=== PATIENT | male | born 1990 | race Caucasian/White ===

== ENCOUNTER 2016-10-06 12:56 | Emergency (ER) | payer BC, MEDICAID ==
[~2016-10-06] VITALS: Ht 182.9 cm; Wt 113.4 kg
[2016-10-06 13:54] VITALS: BP 142/85
== END 2016-10-06 14:58 | disposition home or self-care (01) ==
LOC: ER 12:56
DX: G43.909 Migraine, unspecified, not intractable, without status migrainosus (principal); Z76.0 Encounter for issue of repeat prescription

== ENCOUNTER 2016-10-31 16:19 | Emergency (ER) | payer BC, MEDICAID ==
[~2016-10-31] VITALS: Ht 182.9 cm; Wt 127.0 kg
[2016-10-31 16:44] VITALS: BP 136/88
== END 2016-10-31 21:44 | disposition left against medical advice (07) ==
LOC: ER 16:28
DX: G43.909 Migraine, unspecified, not intractable, without status migrainosus (principal); Z53.21 Procedure and treatment not carried out due to patient leaving prior to being seen by health care provider

== ENCOUNTER 2016-11-01 13:13 | Emergency (ER) | payer BC, MEDICAID ==
[~2016-11-01] VITALS: Ht 188 cm; Wt 127.0 kg
[2016-11-01 14:32] VITALS: BP 130/74
[2016-11-01] MEDS ORDERED: HYDROmorphone HCL 2 MG/ML VL IM ONE (14:45)
[2016-11-01] MEDS ORDERED: ONDANSETRON HCL 4 MG/2 ML VIAL IM ONE (14:45)
== END 2016-11-01 14:48 | disposition home or self-care (01) ==
LOC: ER 13:35
DX: G43.909 Migraine, unspecified, not intractable, without status migrainosus (principal); I10 Essential (primary) hypertension; J02.9 Acute pharyngitis, unspecified
CPT/HCPCS: 96372; 99284; J1170; J2405

== ENCOUNTER 2016-11-17 13:17 | Emergency (ER) | payer BC, MEDICAID ==
[~2016-11-17] VITALS: Ht 182.9 cm; Wt 127.0 kg
[2016-11-17 13:42] VITALS: BP 139/77
[2016-11-17 13:49] LABS: Urine RBC None Seen /hpf (0 - 3)
[2016-11-17 14:16] LABS: Basophils # (auto) 0 uL; Basophils % (auto) 0.4 % (0.0-2.0); Eosinophils # (auto) 0.1 uL; Eosinophils % (auto) 2.8 % (0.0-7.0); Hematocrit 41.4 % (41.0-53.0); Lymphocytes # (auto) 1.2 uL; Lymphocytes % (auto) 28.2 % (10.0-50.0); Mean Corpuscular Hgb Conc. 33.8 g/dL (32.0-36.0); Mean Corpuscular Volume 85.8 fL (80.0-100.0); Mean Platelet Volume 7.4 fL (7.4-10.4); Monocytes # (auto) 0.7 uL; Monocytes % (auto) 15.8 % (0.0-12.0); Neutrophils # (auto) 2.3 uL; Neutrophils % (auto) 52.8 % (37.0-80.0); Platelet Count (auto) 333 10^3/uL (140-450); Red Cell Distribution Width 13.3 % (11.6-16.0); White Blood Cell 4.3 10^3/uL (4.4-10.8)
[2016-11-17 14:20] LABS: Urine Bilirubin Negative (Negative); Urine Blood Negative /uL (Negative); Urine Color Yellow (Yellow); Urine Glucose Normal (Normal); Urine Ketone Negative (Negative); Urine Nitrite Negative (Negative); Urine Urobilinogen Normal (Negative)
[2016-11-17 14:38] LABS: Albumin 3.9 g/dL (3.4-5.0); BUN/Creatinine Ratio 8.3; Bilirubin, Total 0.6 mg/dL (0.2-1.0); Calcium 9.2 mg/dL (8.5-10.1); Potassium 3.9 mmol/L (3.5-5.1); Total Protein 8.1 g/dL (6.4-8.2)
== END 2016-11-18 04:08 | disposition left against medical advice (07) ==
LOC: ER 13:17
DX: R11.2 Nausea with vomiting, unspecified (principal); R51 Headache; R06.02 Shortness of breath; Z53.21 Procedure and treatment not carried out due to patient leaving prior to being seen by health care provider
CPT/HCPCS: 36415; 71020; 80053; 81001; 85025

== ENCOUNTER 2016-11-18 12:27 | Emergency (ER) | payer BC, MEDICAID ==
[~2016-11-18] VITALS: Ht 182.9 cm; Wt 122.5 kg
[2016-11-18 13:39] VITALS: BP 129/88
== END 2016-11-18 15:06 | disposition home or self-care (01) ==
LOC: ER 12:27
DX: J20.9 Acute bronchitis, unspecified (principal); G43.909 Migraine, unspecified, not intractable, without status migrainosus; I10 Essential (primary) hypertension

== ENCOUNTER 2017-01-23 14:22 | Emergency (ER) | payer BC ==
[~2017-01-23] VITALS: Ht 182.9 cm; Wt 127.0 kg
[2017-01-23 14:40] VITALS: BP 150/97
[2017-01-23] MEDS ORDERED: PROMETHAZINE HCL 25 MG/ML 1ML IM ONE (17:15)
[2017-01-23] MEDS ORDERED: MORPHINE SULFATE 4 MG/ML SYRG IM ONE (17:15)
== END 2017-01-23 17:57 | disposition home or self-care (01) ==
LOC: ER 14:22
DX: G43.909 Migraine, unspecified, not intractable, without status migrainosus (principal); I10 Essential (primary) hypertension
CPT/HCPCS: 96372; 99284; J2270; J2550

== ENCOUNTER 2017-04-22 21:24 | Emergency (ER) | payer BC, MEDICAID ==
[~2017-04-22] VITALS: Ht 182.9 cm; Wt 127.0 kg
[2017-04-23] MEDS ORDERED: cefTRIAXone 1GM/50ML D5W 50 ML IV ONE (03:30)
[2017-04-23] MEDS ORDERED: SODIUM CHLORIDE 0.9% 1,000 ML IV ONE (03:30)
[2017-04-23 04:11] LABS: Basophils # (auto) 0 uL; Basophils % (auto) 0.6 % (0.0-2.0); CONDITION Y; Eosinophils # (auto) 0.2 uL; Eosinophils % (auto) 2.4 % (0.0-7.0); Hematocrit 37.9 % (41.0-53.0); Hemoglobin 12.8 g/dL (13.5-17.5); Lymphocytes # (auto) 2.3 uL; Lymphocytes % (auto) 33.2 % (10.0-50.0); Mean Corpuscular Hgb Conc. 33.8 g/dL (32.0-36.0); Mean Corpuscular Volume 85.7 fL (80.0-100.0); Mean Platelet Volume 7.3 fL (6.9-10.8); Monocytes # (auto) 0.5 uL; Neutrophils # (auto) 3.8 uL; Neutrophils % (auto) 55.8 % (37.0-80.0); Platelet Count (auto) 411 10^3/uL (140-450); Red Cell Distribution Width 14.1 % (11.8-14.3); White Blood Cell 6.8 10^3/uL (4.4-10.8)
[2017-04-23 04:28] LABS: Albumin 3.9 g/dL (3.4-5.0); BUN/Creatinine Ratio 12.3; Calcium 9.2 mg/dL (8.5-10.1); Potassium 3.7 mmol/L (3.5-5.1)
[2017-04-23 04:31] LABS: Bilirubin, Total 0.2 mg/dL (0.2-1.0); Total Protein 7.5 g/dL (6.4-8.2)
[2017-04-23] MEDS ORDERED: HYDROmorphone HCL 2 MG/ML VL IV ONE (05:00)
[2017-04-23] MEDS ORDERED: ONDANSETRON HCL 4 MG/2 ML VIAL IV ONE (05:00)
[2017-04-23 05:53] VITALS: BP 133/76
== END 2017-04-23 05:08 | disposition home or self-care (01) ==
LOC: ER 21:30
DX: L03.312 Cellulitis of back [any part except buttock and flank] (principal); I10 Essential (primary) hypertension; T85.199A Other mechanical complication of other implanted electronic stimulator of nervous system, initial encounter; Y92.89 Other specified places as the place of occurrence of the external cause
CPT/HCPCS: 36415; 70450; 72128; 80053; 85025; 96365; 96375; 99285; J0696; J1170; J2405; J7030

== ENCOUNTER 2017-08-20 10:45 | Emergency (ER) | payer MEDICAID ==
[~2017-08-20] VITALS: Ht 182.9 cm; Wt 125.2 kg
[2017-08-20 14:14] VITALS: BP 135/89
[2017-08-20] MEDS ORDERED: KETOROLAC TROMETH 60MG/2ML VIAL IM ONE (14:15)
== END 2017-08-20 14:21 | disposition home or self-care (01) ==
LOC: ER 10:45
DX: G43.909 Migraine, unspecified, not intractable, without status migrainosus (principal); I10 Essential (primary) hypertension
CPT/HCPCS: 99283; J1885

== ENCOUNTER 2017-11-04 14:51 | Emergency (ER) | payer MEDICAID ==
[~2017-11-04] VITALS: Ht 182.9 cm; Wt 122.5 kg
[2017-11-04 15:58] LABS: Basophils # (auto) 0 uL; Basophils % (auto) 0.6 % (0.0-2.0); Eosinophils # (auto) 0 uL; Eosinophils % (auto) 0.3 % (0.0-7.0); Hematocrit 43.9 % (41.0-53.0); Lymphocytes # (auto) 1.3 uL; Lymphocytes % (auto) 19.8 % (10.0-50.0); Mean Corpuscular Hemoglobin 29.7 pg (28.0-32.0); Mean Corpuscular Hgb Conc. 34.1 g/dL (32.0-36.0); Monocytes # (auto) 0.4 uL; Monocytes % (auto) 5.5 % (0.0-12.0); Neutrophils # (auto) 4.8 uL; Neutrophils % (auto) 73.8 % (37.0-80.0); Nucleated Red Blood Cells % 0.2 %; Platelet Count (auto) 405 10^3/uL (140-450); Red Blood Cells 5.04 10^6/uL (4.5-5.90); Red Cell Distribution Width 13.7 % (11.8-14.3); White Blood Cell 6.5 10^3/uL (4.4-10.8)
[2017-11-04 16:04] LABS: Albumin 4.3 g/dL (3.4-5.0); BUN/Creatinine Ratio 7.5; Bilirubin, Total 0.3 mg/dL (0.2-1.0); Potassium 3.1 mmol/L (3.5-5.1); Total Protein 8.2 g/dL (6.4-8.2)
[2017-11-04 16:16] VITALS: BP 140/84
[2017-11-04] MEDS ORDERED: KETOROLAC TROMETH 60MG/2ML VIAL IM ONE (16:30)
[2017-11-04] MEDS ORDERED: ONDANSETRON ODT 4 MG TAB PO ONE (16:45)
== END 2017-11-04 17:16 | disposition home or self-care (01) ==
LOC: ER 14:51
DX: R51 Headache (principal); I10 Essential (primary) hypertension
CPT/HCPCS: 36415; 70450; 80053; 85025; 96372; 99285; J1885; Q0162